=== PATIENT | female | born 1960 | race African-American/Black ===

== ENCOUNTER 2016-12-18 17:43 | Emergency (ER) | payer MEDICAID ==
[~2016-12-18] VITALS: Ht 165.1 cm; Wt 65.0 kg
[~2016-12-18 17:43] MED LIST: CLON-364; GLIP5TAB73 PO; HYDR-4133 PO; METF500T3
[2016-12-18 18:52] LABS: BASOPHILS % 1.2 % (0.0-2.0); EOSINOPHILS % 0.9 % (0.0-5.0); HEMATOCRIT. 41.8 % (36.0-48.0); LYMPHOCYTES % 28.1 % (20.0-50.0); MEAN CORPUSCULAR HEMOGLOBIN 29.3 pg (28.0-32.0); MEAN CORPUSCULAR VOLUME 87.3 fL (81.0-99.0); MEAN PLATELET VOLUME 11.2 fl (7.4-10.4); MONOCYTES % 6.3 % (2.0-8.0); NEUTROPHILS % 63.5 % (40.0-76.0); PLATELET 219 x1000/uL (130-400); RED BLOOD CELL COUNT 4.79 mill/uL (4.2-5.4); RED CELL DISTRIBUTION WIDTH 13.6 % (11.6-14.6)
[2016-12-18 18:58] LABS: CHLORIDE 98 mEq/L (98-107)
[2016-12-18 19:01] LABS: PARTIAL THROMBOPLASTIN TIME 25.7 sec (23.4-31.0)
[2016-12-18 19:02] LABS: CARBON DIOXIDE 28 mEq/L (21-32)
[2016-12-18 19:09] LABS: TROPONIN I < 0.02 ng/mL (0.00-0.04)
[2016-12-18] MEDS ORDERED: SODIUM CHLORIDE 0.9% 1,000 ML IV ONE (19:30)
[2016-12-18] MEDS ORDERED: INSULIN REGULAR (HUMULIN R) UD 100 UNITS/ML SYR IV ONE ×2 (19:30→21:00)
[2016-12-18] MEDS ORDERED: INSULIN REGULAR (HUMULIN R) 300UNITS/3ML IV NR (20:00)
[2016-12-18] MEDS ORDERED: DIPHENHYDRAMINE 25MG CAPSULE PO ONE (21:00)
[2016-12-18] MEDS ORDERED: INSULIN REGULAR (HUMULIN R) 300UNITS/3ML IV ONE (21:07)
[2016-12-18 22:02] VITALS: BP 145/90
== END 2016-12-18 22:04 | disposition home or self-care (01) ==
LOC: ER 17:58
DX: E11.65 Type 2 diabetes mellitus with hyperglycemia (principal); I10 Essential (primary) hypertension; I25.10 Atherosclerotic heart disease of native coronary artery without angina pectoris; R53.1 Weakness; R42 Dizziness and giddiness; Z79.4 Long term (current) use of insulin; Z86.73 Personal history of transient ischemic attack (TIA), and cerebral infarction without residual deficits
CPT/HCPCS: 36415; 71010; 80053; 82962; 83690; 84484; 85025; 85610; 85730; 93005; 96361; 96374; 96376; 99285; J1815; J7030; Z7610; Q0163